=== PATIENT | male | born 1955 | race Caucasian/White ===

== ENCOUNTER → 2018-03-22 | Day surgery (SDC) | payer OTHER ==
[~2018-03-22] MED LIST: ANDROGEL5 GM TOP; APRISO0.375 GM PO; ASPIR 8181 MG PO; ATENOLOL50 MG PO; CYCLOBENZAPRINE10 MG PO; DICLOFENAC SODI75 MG PO; DIOVAN80 MG PO; ESIDRIX25 MG PO; FENTANYL CITRATE/PF 100MCG/2 ML INJ ONE; GABAPENTIN800 MG PO; HYDROCHLOROTH12.5 M1 PO; HYDROCODON-ACE1 EAC9 PO; LIBRAX CAPSULE1 EACH PO; LIDOCAINE HCL 2% LOCAL INJ 5 ML SDV VIAL INJ ONE; LIPITOR10 MG PO; MIDAZOLAM HCL 2 MG/2 ML VIAL ONE; PANTOPRAZOLE SO40 MG PO; PROPOFOL IV EMULSION 10 MG/ML 20 ML VIAL ONE; TRAZODONE HCL50 MG PO; VIAGRA50 MG PO
--- NOTE | 2018-03-22 09:27 | Operative Report ---
DATE OF PROCEDURE: March 22, 2018 PROCEDURE PERFORMED: Colonoscopy. PREOPERATIVE DIAGNOSIS: Long history of chronic ulcerative colitis, as well as colonic polyps. POSTOPERATIVE DIAGNOSES 1. Rectal polyp. 2. History of chronic ulcerative colitis. No active disease found. Using the [employer] Envelope video colonoscope, it was inserted into the patient's rectum and advanced without difficulty to the level of the cecum. The colon was taken from that level back to the rectum. No inflammatory changes were seen. Biopsies were obtained in the ascending colon, transverse colon, descending colon, sigmoid colon, and rectum looking for any evidence of dysplasia. A 4 mm size polyp was in the proximal rectum, and was removed with the hot biopsy forceps. The colonoscope was withdrawn from the patient's rectum, and the procedure was ended. In conclusion, we have findings of a history of FLACA with no evidence of active inflammation going on at this time. Benign rectal polyp. Job#: [id number] HEATHER
== END | disposition home or self-care (01) ==
LOC: OR 06:25
PROVIDERS: ATTEND Internal Medicine Gastroenterology
DX: K51.50 Left sided colitis without complications (principal); D12.8 Benign neoplasm of rectum; K25.9 Gastric ulcer, unspecified as acute or chronic, without hemorrhage or perforation; K44.9 Diaphragmatic hernia without obstruction or gangrene; K21.9 Gastro-esophageal reflux disease without esophagitis; K57.90 Diverticulosis of intestine, part unspecified, without perforation or abscess without bleeding; G47.33 Obstructive sleep apnea (adult) (pediatric); I10 Essential (primary) hypertension; E78.5 Hyperlipidemia, unspecified; N20.0 Calculus of kidney; M19.90 Unspecified osteoarthritis, unspecified site; Z01.810 Encounter for preprocedural cardiovascular examination; Z79.82 Long term (current) use of aspirin; Z68.43 Body mass index [BMI] 50.0-59.9, adult; Z96.652 Presence of left artificial knee joint; Z80.0 Family history of malignant neoplasm of digestive organs
CPT/HCPCS: 45384; 93005; J2001; J2250; 45380

== ENCOUNTER → 2019-05-09 | Outpatient (CLI) | payer OTHER ==
[~2019-05-09] MED LIST changes: -FENTANYL CITRATE/PF 100MCG/2 ML INJ ONE; -LIDOCAINE HCL 2% LOCAL INJ 5 ML SDV VIAL INJ ONE; -MIDAZOLAM HCL 2 MG/2 ML VIAL ONE; -PROPOFOL IV EMULSION 10 MG/ML 20 ML VIAL ONE
--- NOTE | 2019-05-09 16:11 | Diagnostic Imaging Report ---
TECHNIQUE: Magnetic resonance imaging of the LEFT ANKLE was performed WITHOUT injected contrast. COMPARISON: None available. HISTORY: Left ankle pain FINDINGS: LIGAMENTS: Medial Complex: Scarring of the deltoid ligament. Lateral Complex: Tibiofibular, talofibular, and calcaneofibular ligaments intact. TENDONS: Medial: Posterior tibial and flexor tendons intact. Lateral: Peroneal tendons intact. Anterior: Anterior tibial and extensor tendons intact. Achilles: Achilles tendon intact. Mild distal insertional tendinopathy bilaterally. BONES: Bone marrow edema within the distal tibia. No acute fracture or osteonecrosis. JOINTS: Cartilage: High-grade cartilage loss throughout the ankle joint with areas of subchondral cystic change and sclerosis. Osteophytosis. Moderate degenerative change of the talonavicular joint and mild degenerative arthrosis of the cuneonavicular articulations. Other: Ankle joint effusion. SOFT TISSUES: Otherwise, unremarkable. IMPRESSION: No acute abnormality. 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 Signed by: Dr. Denys Collins M.D. on 05/09/2019 4:08 PM
== END ==
LOC: MRI 15:09
PROVIDERS: ATTEND Family Medicine
DX: M25.572 Pain in left ankle and joints of left foot (principal); M25.472 Effusion, left ankle